=== PATIENT | female | born 1970 | race Caucasian/White ===

== ENCOUNTER 2017-03-05 11:00 | Emergency (ER) | payer OTHER ==
[~2017-03-05] VITALS: Ht 162.6 cm; Wt 91.0 kg
[2017-03-05 11:03] VITALS: TEMP 36.6; Ht 162.6 cm; Wt 91.0 kg
[2017-03-05] MEDS ORDERED: TRAMADOL HCL 50 MG TAB PO STA (11:14)
--- NOTE | 2017-03-05 11:58 | DIAGNOSTIC IMAGING REPORT ---
LEFT ANKLE 3 VIEWS CLINICAL HISTORY: Fall with left ankle injury. FINDINGS: 3 views of left ankle are obtained. No prior studies are available for comparison at the time of dictation. The skeletal structures are well mineralized. There is an avulsion fracture identified along the lateral aspect of the foot. The donor site is indeterminant, and there is significant surrounding soft tissue edema. No additional fracture is seen. No large joint effusion is identified. IMPRESSION: 1. There is an avulsion fracture identified along the lateral aspect of the hindfoot with significant overlying soft tissue edema. The donor site is unclear. 2. No additional fracture is identified. Electronically signed by: Lang Serrano M.D. 03/05/2017 11:56 AM Dictated Date/Time: 03/05/2017 11:42 AM
--- NOTE | 2017-03-05 12:03 | DIAGNOSTIC IMAGING REPORT ---
LEFT FOOT 3 VIEWS HISTORY: Follow-up left foot pain. COMPARISON: None. FINDINGS: Mild osteoarthritis at the first MTP joint. The Lisfranc joint is intact. Soft tissue swelling within the lateral aspect of the hindfoot and dorsum of the forefoot. Small avulsion fracture seen on the lateral aspect of the hindfoot on the same day ankle radiograph are not well visualized on this study. No additional fractures or dislocation identified. No radiopaque foreign bodies. IMPRESSION: Soft tissue swelling. Small avulsion type fractures at the lateral aspect of the hindfoot on the same day ankle radiograph are not well visualized. Electronically signed by: Camron Gale M.D. 03/05/2017 12:01 PM Dictated Date/Time: 03/05/2017 11:58 AM
[2017-03-05] MEDS ORDERED: OXYC1TAB3 PO (12:16)
[2017-03-05 12:40] VITALS: BP 143/91; PULSE 69; O2SAT 99
--- NOTE | 2017-03-05 17:55 | EMERGENCY ROOM VISIT NOTE ---
ED Visit Note First contact with patient: 11:07 CHIEF COMPLAINT: Ankle pain HISTORY OF PRESENT ILLNESS: This 46 yo patient presents to the emergency department after sustaining an injury to the left ankle and foot with a twisting, inversion motion misstep. The patient complains of pain along the outside of the ankle. The patient complains pain of the foot. The patient rates the pain as driving and 6/10. The patient is not able to bear weight on the foot. Constant pain, worse with movement, weight bearing, and the dependent position. No knee pain, the patient is able to move their toes. No numbness or weakness of the foot, no laceration. The patient has had a previous fracture to this ankle. The patient has taken nothing for the pain. The patient denies any other injury. REVIEW OF SYSTEMS: A 6 system review of systems was completed with positives and pertinent negatives listed in the HPI. ALLERGIES: Penicillin, reviewed MEDICATIONS: Reviewed PMH: Cholecystectomy, hysterectomy, asthma, prior orthopedic surgeries SOCIAL HISTORY: No drug use PHYSICAL EXAM: Vital Signs: Reviewed Nurse's notes, vital signs stable. GENERAL : Pleasant female, no acute distress, but appears in pain, well-developed, well- nourished. MENTAL STATUS: Alert, oriented to person place and time, and cooperative. MUSCULOSKELETAL: The left ankle is swollen and tender over the lateral malleolus, but the skin is intact and there is no ligamentous instability. There is no fifth metatarsal tenderness. There is tenderness over the rest of the foot. There is no calf or tibia/fibular tenderness. There is no visual deformity. The foot and toes are warm and well-perfused. Dorsalis pedis pulse 2+. Sensation to pain and light touch is intact. Capillary refill less than 2 seconds. EMERGENCY DEPARTMENT COURSE: I examined the patient. Ice pack was applied. X- rays of the foot and ankle were reviewed by myself and read by radiology and reveal LEFT ANKLE 3 VIEWS CLINICAL HISTORY: Fall with left ankle injury. FINDINGS: 3 views of left ankle are obtained. No prior studies are available for comparison at the time of dictation. The skeletal structures are well mineralized. There is an avulsion fracture identified along the lateral aspect of the foot. The donor site is indeterminant, and there is significant surrounding soft tissue edema. No additional fracture is seen. No large joint effusion is identified. IMPRESSION: 1. There is an avulsion fracture identified along the lateral aspect of the hindfoot with significant overlying soft tissue edema. The donor site is unclear. 2. No additional fracture is identified. Electronically signed by: Lang Serrano M.D. 03/05/2017 11:56 AM Ortho-Glass stirrup was applied to the ankle under my direction and the position was satisfactory. Neurovascular status was rechecked and intact. Patient was advised to follow-up orthopedics for definitive care for her injury or here in the ER sooner for severe pain, numbness, tingling, worsening signs or symptoms or as needed. The patient was instructed on the use of crutches. The patient was discharged home in good condition. Differential diagnoses include sprain, strain, fracture, dislocation and other etiologies were considered. DIAGNOSIS: Left foot fracture DISCHARGE INSTRUCTIONS: As below Current/Historical Medications Scheduled PRN Oxycodone Immediate Rel Tab (Roxicodone Ir), 1-2 TAB PO Q4H PRN for Severe Pain Allergies Coded Allergies: Penicillins (Verified Allergy, Mild, RASH, 03/05/17) Sulfa Antibiotics (Verified Allergy, Mild, RASH, 03/05/17) Vital Signs Date Time Temp Pulse Resp B/P Pulse Ox O2 Delivery O2 Flow Rate FiO2 03/05/17 12:40 69 16 143/91 99 03/05/17 11:03 36.6 72 18 148/82 99 Room Air Medications Administered Medications (Trade) Dose Ordered Sig/Jayant Route Start Time Stop Time Status Last Admin Dose Admin Tramadol HCl (Ultram Tab) 50 mg ONE STAT PO 03/05/17 11:14 03/05/17 11:16 DC 03/05/17 11:21 50 MG Departure Information Impression Primary Impression: Foot fracture, left Dispostion Home / Self-Care Condition GOOD Prescriptions Oxycodone Immediate Rel Tab (ROXICODONE IR) 5 Mg Tab 1-2 TAB PO Q4H Y for Severe Pain, #15 TAB Prov: Poly Chavarria PA-C 03/05/17 Referrals Cameron Dawson D.O. Forms HOME CARE DOCUMENTATION FORM, Work Instructions, Return To Work: 2 days IMPORTANT VISIT INFORMATION Patient Instructions My [facility], ED Fx Foot Additional Instructions DO NOT drive, drink alcohol, operate machinery, or perform dangerous activities today. You were given medications in the ER that can affect your ability to safely function or operate a vehicle. Oxycodone (OxyIR) 5mg: Take 1-2 pills every four hours for breakthrough pain. Avoid alcohol, operating machinery or dangerous equipment, working on ladders or roofs, DRIVING, or situations where being under the influence may be dangerous. It is recommended to use an [id number] stool softener such as Colace, 100mg twice daily while taking this medication to avoid constipation. Ibuprofen(Motrin, Advil) may be used for fever or pain. Use 600mg every six hours as needed. Take with food. Avoid using more than 2400mg in a 24 hour period. Do not use 2400mg per day for more than three consecutive days without physician direction. Prolonged inappropriate use can lead to stomach upset or ulcers. This medication can be taken if you need to drive, work, or perform activities which may be dangerous when taking narcotic pain medication. (AND/OR) Acetaminophen(Tylenol) may be used for fever or pain. Use 1000mg every six hours as needed. Avoid using more than 3000mg in a 24 hour period. This medication can be taken if you need to drive, work, or perform activities which may be dangerous when taking narcotic pain medication. Ice compresses for 20 minutes at a time four times daily for 2-3 days. Use the crutches as instructed. Rest and elevate your injury. Do not get the splint wet. If your splint feels excessively tight, you have worsening pain, develop numbness or tingling, or your digits appear blue, loosen the kristy wrap. Then reapply the kristy wrap gently without removing the splint. If your symptoms are not quickly relieved return to the ER for re- evaluation. Continue current medications. Return to the ER immediately for any numbness, tingling, severe pain, extreme swelling in the extremity or as needed. Call Orthopedics tomorrow to arrange follow up for your injury. Work Instructions Return To Work: 2 days
== END 2017-03-05 12:41 | disposition home or self-care (01) ==
LOC: C.EDB 11:01 → C.EDD 12:41
DX: S92.902A Unspecified fracture of left foot, initial encounter for closed fracture (principal); X50.9XXA Other and unspecified overexertion or strenuous movements or postures, initial encounter; Z90.710 Acquired absence of both cervix and uterus; J45.909 Unspecified asthma, uncomplicated

== ENCOUNTER → 2017-03-16 | Outpatient (CLI) | payer OTHER ==
[~2017-03-16] MED LIST: OXYC1TAB3 PO
--- NOTE | 2017-03-16 14:05 | DIAGNOSTIC IMAGING REPORT ---
CT OF THE LEFT ANKLE WITHOUT CONTRAST CT DOSE: 206.83 mGy.cm CLINICAL HISTORY: Left ankle injury. TECHNIQUE: Axial images of the left ankle were obtained without IV contrast. Sagittal and coronal reconstructions were viewed. COMPARISON STUDY: Left ankle and foot radiographs March 05, 2017. FINDINGS: There is no acute fracture of the distal left tibia or fibula. Talar dome is intact. There is no talar fracture. There is a comminuted, mildly displaced avulsion fracture of the lateral aspect of the anterior process of the calcaneus. No additional calcaneal fractures are present. There is adjacent soft tissue swelling. Tarsometatarsal joints are intact. There is a nondisplaced fracture within the dorsal base of the lateral cuneiform. This is likely acute to subacute. No additional fractures are identified. IMPRESSION: 1. Comminuted, mildly displaced avulsion fracture the lateral aspect of the anterior process of the calcaneus. 2. Tiny nondisplaced fracture of the dorsal base of the lateral cuneiform. Electronically signed by: Casey Hernandez M.D. 03/16/2017 2:03 PM Dictated Date/Time: 03/16/2017 1:55 PM
== END | disposition home or self-care (01) ==
LOC: C.CTS 13:24
PROVIDERS: ATTEND Orthopaedic Surgery Sports Medicine
DX: S92.022A Displaced fracture of anterior process of left calcaneus, initial encounter for closed fracture (principal); S92.225A Nondisplaced fracture of lateral cuneiform of left foot, initial encounter for closed fracture; X58.XXXA Exposure to other specified factors, initial encounter

== ENCOUNTER 2017-04-02 15:24 | Emergency (ER) | payer OTHER ==
[~2017-04-02] VITALS: Ht 162.6 cm; Wt 93.0 kg
[2017-04-02 15:30] VITALS: BP 180/101; PULSE 79; TEMP 37.6; O2SAT 99; Ht 162.6 cm; Wt 93.0 kg
== END 2017-04-02 15:58 | disposition left against medical advice (07) ==
LOC: C.EDB 15:25
DX: R07.9 Chest pain, unspecified (principal)

== ENCOUNTER → 2017-04-23 | Outpatient (CLI) | payer OTHER | END | disposition home or self-care (01) | LOC: C.RDSM 08:30 | PROVIDERS: ATTEND Orthopaedic Surgery Sports Medicine | DX: S93.402D Sprain of unspecified ligament of left ankle, subsequent encounter (principal); X58.XXXD Exposure to other specified factors, subsequent encounter ==